=== PATIENT | female | born 1945 ===

== ENCOUNTER 2017-06-02 12:55 | Emergency (ER) | payer OTHER ==
[2017-06-02 13:10] VITALS: PULSE 97; RESP 18; TEMP 99; O2SAT 95
--- NOTE | 2017-06-02 13:41 | ED PDOC ---
HPI: CCC, URI, Sore Throat Time Seen by Provider: 06/02/17 13:20 Chief Complaint (Nursing): Cough, Cold, Congestion Chief Complaint (Provider): Cough, Cold, Congestion History Per: Patient History/Exam Limitations: no limitations Onset/Duration Of Symptoms: Days (x2 weeks) Current Symptoms Are (Timing): Still Present Sick Contacts (Context): Family Member(s) (sisters) Additional Complaint(s): 71 year old female who presents to the emergency department with a complaint of nonproductive cough (contrary to triage note) ongoing for 2 weeks. Denied any fever, chills, chest pain, shortness of breath or bloody cough. Patient stated she is currently visiting country from [place] since March 2017 and took OTC cough medications with no alleviation. Of note, she also reported exposure to her 2 sisters with similar symptoms. PMD: none provided Past Medical History Reviewed: Historical Data, Nursing Documentation, Vital Signs Vital Signs: Last Vital Signs Temp 99 F 06/02/17 13:06 Pulse 97 H 06/02/17 13:06 Resp 18 06/02/17 13:06 BP Pulse Ox 95 06/02/17 14:23 - Family History Family History: States: Unknown Family Hx - Home Medications Home Medications: Ambulatory Orders Medication Instructions Recorded Azithromycin [Zithromax] 250 mg PO DAILY #6 tab 06/02/17 Benzonatate [Tessalon Perle] 100 mg PO Q8 PRN #30 capsule 06/02/17 - Allergies Allergies/Adverse Reactions: Allergies Allergy/AdvReac Type Severity Reaction Status Date / Time No Known Allergies Allergy Verified 06/02/17 13:10 Review of Systems ROS Statement: Except As Marked, All Systems Reviewed And Found Negative Constitutional: Negative for: Fever, Chills Cardiovascular: Negative for: Chest Pain Respiratory: Positive for: Cough. Negative for: Shortness of Breath, Hemoptysis , Sputum Physical Exam - Reviewed Nursing Documentation Reviewed: Yes Vital Signs Reviewed: Yes - Physical Exam Appears: Positive for: No Acute Distress. Negative for: In Acute Distress Eye Exam: Positive for: Normal appearance, EOMI, PERRL. Negative for: Nystagmus ENT: Positive for: Normal ENT Inspection, Pharynx Is (within normal limits). Negative for: Nasal Congestion, Pharyngeal Erythema Cardiovascular/Chest: Positive for: Regular Rate, Rhythm, Chest Non Tender Respiratory: Positive for: Normal Breath Sounds, Other (occasional cough noted) . Negative for: Decreased Breath Sounds, Respiratory Distress Neurologic/Psych: Positive for: Alert (x3), Oriented. Negative for: Motor/ Sensory Deficits - ECG O2 Sat by Pulse Oximetry: 95 (RA) Pulse Ox Interpretation: Normal - Radiology X-Ray: Interpreted by Me (CXR) X-Ray Interpretation: No Acute Disease Medical Decision Making Medical Decision Making: Initial Impression: URI; pneumonia; bronchitis Initial Plan: * CXR Scribe Attestation: Documented by Sudha Pisano, acting as a scribe for Isidro Plunkett PA-C. Provider Scribe Attestation: All medical record entries made by the Scribe were at my direction and personally dictated by me. I have reviewed the chart and agree that the record accurately reflects my personal performance of the history, physical exam, medical decision making, and the department course for this patient. I have also personally directed, reviewed, and agree with the discharge instructions and disposition. Disposition - Clinical Impression Clinical Impression: Acute bronchitis - Patient ED Disposition Is Patient to be Admitted: No - Disposition Referrals: [facility] [Outside] Disposition: Routine/Home Disposition Time: 14:15 Condition: STABLE Prescriptions: Azithromycin [Zithromax] 250 mg PO DAILY #6 tab Benzonatate [Tessalon Perle] 100 mg PO Q8 PRN #30 capsule PRN Reason: Cough Instructions: Acute Bronchitis (ED) Forms: [employer] (Wolof) Print Language: JAPANESE
--- NOTE | 2017-06-02 15:01 | RAD ---
HISTORY: cough COMPARISON: No prior. TECHNIQUE: Chest PA and lateral FINDINGS: LUNGS: No active pulmonary disease. PLEURA: No significant pleural effusion identified. No pneumothorax apparent. CARDIOVASCULAR: Normal. OSSEOUS STRUCTURES: Mildly kyphotic thoracic spinal deformity noted without severe compression fracture evident. VISUALIZED UPPER ABDOMEN: Normal. OTHER FINDINGS: None. IMPRESSION: No acute cardiopulmonary disease appreciated.
== END 2017-06-02 14:32 | disposition home or self-care (01) ==
LOC: H.ER 12:55
DX: J20.9 Acute bronchitis, unspecified (principal)